=== PATIENT | male | born 1965 | race Caucasian/White ===

== ENCOUNTER → 2018-05-07 | Outpatient (CLI) | payer MEDICARE, OTHER ==
[~2018-05-07] MED LIST: OMNIPAQUE 350 MG/ML, 150 ML BOTTLE ONE
== END | disposition home or self-care (01) ==
LOC: CFH 13:25
PROVIDERS: ATTEND Genetic Counselor, MS
DX: R10.9 Unspecified abdominal pain (principal)
CPT/HCPCS: 74177; Q9967